=== PATIENT | female | born 1945 | race Caucasian/White ===

== ENCOUNTER → 2024-02-16 09:29 | Outpatient (REF) | payer OTHER, SELFPAY | LOC: WDC 09:29 | PROVIDERS: ATTENDING PHYSICIAN Surgery; FAMILY PHYSICIAN Nurse Practitioner | DX: N64.4 Mastodynia (principal); Z85.3 Personal history of malignant neoplasm of breast; D05.12 Intraductal carcinoma in situ of left breast | CPT/HCPCS: 76642; 77061; 77065 ==